=== PATIENT | male | born 1965 | race Two or more races ===

== ENCOUNTER 2017-09-02 08:35 | Outpatient (CLI) | payer OTHER ==
[~2017-09-02] VITALS: Ht 175.3 cm; Wt 76.2 kg
== END 2017-09-02 08:55 | disposition home or self-care (01) ==
LOC: OFIC 805 08:35
DX: J32.8 Other chronic sinusitis (principal); J30.89 Other allergic rhinitis; R09.81 Nasal congestion

== ENCOUNTER 2017-09-15 08:59 | Outpatient (CLI) | payer OTHER ==
[~2017-09-15] VITALS: Ht 152.4 cm; Wt 76.2 kg
== END 2017-09-15 09:15 | disposition home or self-care (01) ==
LOC: OFIC 805 08:59
DX: J30.89 Other allergic rhinitis (principal); J32.8 Other chronic sinusitis; R09.81 Nasal congestion

== ENCOUNTER 2017-09-23 08:51 | Outpatient (CLI) | payer OTHER ==
[~2017-09-23] VITALS: Ht 152.4 cm; Wt 76.2 kg
== END 2017-09-23 09:10 | disposition home or self-care (01) ==
LOC: OFIC 805 08:51
DX: J30.89 Other allergic rhinitis (principal); R09.81 Nasal congestion; J34.3 Hypertrophy of nasal turbinates; J32.4 Chronic pansinusitis

== ENCOUNTER → 2019-01-11 | Outpatient (CLI) | payer OTHER | END | disposition home or self-care (01) | LOC: RAD 15:16 | DX: M25.512 Pain in left shoulder (principal) ==